=== PATIENT | female | born 1990 | race Caucasian/White ===

== ENCOUNTER 2016-11-25 06:51 | Day surgery (SDC) | payer BC, MEDICAID ==
[~2016-11-25 06:51] MED LIST: Lidocaine 1%/Sod Bicarbonate in NS 8.4% 1 ML Syringe PRN; Sodium Chloride 0.9% 10 ML Syringe FLUSH PRN
--- NOTE | 2016-11-25 06:57 | PCM.PREANE ---
Preanesthetic Assessment - Anesthesia/Transfusion/Family Hx Anesthesia History: Prior Anesthesia Without Reaction Family History of Anesthesia Reaction: No Transfusion History: No Prior Transfusion(s) Intubation History: Unknown - Review of Systems General: No Symptoms Pulmonary: No Symptoms Cardiovascular: Palpitations (with anxiety attacks) Gastrointestinal: No Symptoms (GERD) Neurological: No Symptoms (motion sickness noted on occasion.) Other: Reports: Sinus Problem (seasonal allergies), Anxiety - Physical Assessment NPO Status Date: 11/24/16 NPO Status Time: 21:00 Pulse: 68 O2 Sat by Pulse Oximetry: 98 Respiratory Rate: 16 Blood Pressure: 111/74 Temperature: 37.3 C Height: 1.55 m Weight: 52 kg ASA Class: 1 Mental Status: Alert & Oriented x3 Airway Class: Mallampati = 2 Dentition: Reports: Normal Dentition, Caries (upper/lower braces noted.) Thyro-Mental Finger Breadths: 3 Mouth Opening Finger Breadths: 3 ROM/Head Extension: Full Lungs: Clear to Auscultation, Normal Respiratory Effort Cardiovascular: Regular Rate, Regular Rhythm, No Murmurs - Lab Values: Laboratory Last Values WBC 8.65 K/mm3 (3.98-10.04) 11/23/16 09:30 RBC 4.73 M/mm3 (3.98-5.22) 11/23/16 09:30 Hgb 14.0 gm/L (11.2-15.7) 11/23/16 09:30 Hct 41.5 % (34.1-44.9) 11/23/16 09:30 MCV 87.7 fl (79.4-94.8) 11/23/16 09:30 MCH 29.6 pg (25.6-32.2) 11/23/16 09:30 MCHC 33.7 g/dl (32.2-35.5) 11/23/16 09:30 RDW Std Deviation 41.0 fL (36.4-46.3) 11/23/16 09:30 Plt Count 225 K/mm3 (182-369) 11/23/16 09:30 MPV 10.5 fl (9.4-12.3) 11/23/16 09:30 Neut % (Auto) 70.3 % (34.0-71.1) 11/23/16 09:30 Lymph % (Auto) 20.0 % (19.3-51.7) 11/23/16 09:30 [place] % (Auto) 7.3 % (4.7-12.5) 11/23/16 09:30 Eos % (Auto) 2.0 (0.7-5.8) 11/23/16 09:30 Baso % (Auto) 0.2 % (0.1-1.2) 11/23/16 09:30 Neut # (Auto) 6.08 K/mm3 (1.56-6.13) 11/23/16 09:30 Lymph # (Auto) 1.73 K/mm3 (1.18-3.74) 11/23/16 09:30 [place] # (Auto) 0.63 K/mm3 (0.24-0.36) H 11/23/16 09:30 Eos # (Auto) 0.17 K/mm3 (0.04-0.36) 11/23/16 09:30 Baso # (Auto) 0.02 K/mm3 (0.01-0.08) 11/23/16 09:30 HCG, Quant < 1.0 mIU/mL 11/23/16 09:30 Blood Type A POSITIVE 11/23/16 09:30 Gel Antibody Screen Negative 11/23/16 09:30 Above labs reviewed and noted. - Allergies Allergies/Adverse Reactions: Allergies Allergy/AdvReac Type Severity Reaction Status Date / Time Penicillins Allergy Hives Verified 11/24/16 14:27 - Anesthesia Plan Pre-Op Medication Ordered: None - Acknowledgements Anesthesia Type Planned: General Anesthesia Pt an Appropriate Candidate for the Planned Anesthesia: Yes Alternatives and Risks of Anesthesia Discussed w Pt/Guardian: Yes Pt/Guardian Understands and Agrees with Anesthesia Plan: Yes PreAnesthesia Questionnaire - Past Health History Medical/Surgical History: Denies Medical/Surgical History HEENT History: Reports: None Cardiovascular History: Reports: None Respiratory History: Reports: None Gastrointestinal History: Reports: None Genitourinary History: Reports: None 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 (See Below) Other OB/BYN History: irregular menses, pelvic pain Musculoskeletal History: Reports: None Neurological History: Reports: None Psychiatric History: Reports: Anxiety Endocrine/Metabolic History: Reports: None Hematologic History: Reports: None Immunologic History: Reports: None Oncologic (Cancer) History: Reports: None Dermatologic History: Reports: None - Past Surgical History Head Surgeries/Procedures: Reports: None HEENT Surgical History: Reports: None Cardiovascular Surgical History: Reports: None Respiratory Surgical History: Reports: None Endocrine Surgical History: Reports: None Neurological Surgical History: Reports: None Musculoskeletal Surgical History: Reports: None Oncologic Surgical History: Reports: None Dermatological Surgical History: Reports: None - SUBSTANCE USE Smoking Status *Q: Never Smoker Tobacco Use Within Last Twelve Months: Cigarettes Second Hand Smoke Exposure: No Days Per Week of Alcohol Use: 1 Number of Drinks Per Day: 2 Total Drinks Per Week: 2 Recreational Drug Use History: No - HOME MEDS Home Medications: Home Meds Fluticasone Propionate [Flonase Allergy Relief] 1 dose NASBOTH DAILY 11/24/16 [ History] Lactobacillus Acidophilus [Probiotic] 1 cap PO DAILY 11/24/16 [History] Multivitamin [Poly-Vitamin] 1 tab PO DAILY 11/24/16 [History] - CURRENT (IN HOUSE) MEDS Current Meds: Current Medications Lactated Ringer's (Ringers, Lactated) 1,000 mls @ 125 mls/hr IV ASDIRECTED SUSAN Stop: 11/25/16 23:00 Lidocaine/Sodium Bicarbonate (Buffered Lidocaine 1% In Ns 8.4%) 0.25 ml .XX ONETIME PRN PRN Reason: Prior to IV Start Stop: 11/25/16 18:00 Sodium Chloride (Saline Flush) 10 ml FLUSH ASDIRECTED PRN PRN Reason: Keep Vein Open Stop: 11/25/16 18:00
[2016-11-25] MEDS ORDERED: Methylene Blue 50 MG/10 ML Ampule ONE (07:04)
[2016-11-25] MEDS: Lactated Ringers 1,000 ML IV SCH ×2 (07:25→09:49)
[2016-11-25] MEDS ORDERED: Bupivacaine 0.5% 30 ML SDV ONE (07:26)
[2016-11-25] MEDS ORDERED: Midazolam 1 MG/ML 2 ML SDV ONE (07:36)
[2016-11-25] MEDS ORDERED: ceFAZolin 1 GM Vial ONE (07:36)
[2016-11-25] MEDS ORDERED: Ketorolac 30 MG/ML SDV ONE (07:36)
[2016-11-25] MEDS ORDERED: Ondansetron 4 MG/2 ML SDV ONE (07:36)
[2016-11-25] MEDS ORDERED: Rocuronium 50 MG/5 ML Vial ONE (07:36)
[2016-11-25] MEDS ORDERED: Lactated Ringers 1,000 ML ONE (07:36)
[2016-11-25] MEDS ORDERED: Propofol 200 MG/20 ML SDV ONE (07:36)
[2016-11-25] MEDS ORDERED: Dexamethasone 4 MG/ML 5 ML MDV ONE (07:36)
[2016-11-25] MEDS ORDERED: Lidocaine 1% 4 ML ONE (07:36)
[2016-11-25] MEDS ORDERED: fentaNYL 250 MCG/5 ML SDV ONE (07:37)
[2016-11-25] MEDS ORDERED: HYDROmorphone 1 MG/ML Syringe ONE (08:25)
[2016-11-25] MEDS ORDERED: Midazolam 1 MG/ML 2 ML SDV IVPUSH PRN (08:27)
[2016-11-25] MEDS ORDERED: diphenhydrAMINE 50 MG/ML SDV IVPUSH PRN (08:27)
[2016-11-25] MEDS ORDERED: Ondansetron 4 MG/2 ML SDV IVPUSH PRN (08:27)
[2016-11-25] MEDS ORDERED: ePHEDrine 50 MG/ML SDV IVPUSH PRN (08:27)
[2016-11-25] MEDS ORDERED: Meperidine PF 50 MG/ML Syringe IVPUSH PRN (08:27)
[2016-11-25] MEDS ORDERED: Phenylephrine 1 MG in Sodium Chloride 0.9% 10 ML IV SCH (08:30)
[2016-11-25] MEDS ORDERED: Glycopyrrolate 0.2 MG/ML SDV ONE ×3 (08:53→08:55)
[2016-11-25] MEDS ORDERED: HYDROmorphone 0.5 MG/0.5 ML Syringe IVPUSH PRN (09:30)
[2016-11-25] MEDS ORDERED: fentaNYL 100 MCG/2 ML SDV IVPUSH PRN (09:30)
--- NOTE | 2016-11-25 09:32 | PCM.OPNOTE ---
- General Post-Op/Procedure Note Date of Surgery/Procedure: 11/25/16 Operative Procedure(s): Laparoscopy with biopsy and lysis of adhesions 66918, dilatation and curettage and hysteroscopy 97812 Pre Op Diagnosis: Irregular menses, pelvic pain. 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 SCDs in place and functioning prior to surgery Ancef 2 g given intravenously prior surgery without untoward effect. Timeout performed confirming name date of and procedure as laparoscopy hysteroscopy and D&C. Examination under anesthesia revealed no adnexal masses normal size uterus uterine manipulator was placed after carefully dilating the uterus after sounding to 7.5 cm. A 2 ml injection of 0.5% Marcaine injected in the area of the planned incision at the umbilicus and just above the pubic line in the center. 5 mm incisions made in both areas and varies needle was introduced without difficulty pneumoperitoneum was obtained the 5 mm trocar was then introduced and prompt visualization of pelvic organs accomplished. Suprapubic placement of 5 mm trocar was then performed. Examination of the pelvic organs revealed adhesions of the anterior surface of the uterus to the round ligaments and adhesions in the area of the cecum and appendix on the right side anterolaterally (Dr. Billings general surgeon was called to view the adhesions and confirmed planned procedure lysis of adhesions without removal of the appendix) both ovaries appeared normal with the exception the right ovary having a small "fibroma" appearing excrescence which was subsequently biopsied and removed. The tubes appeared normal chromotubation was not performed. He cul-de-sac anteriorly and posteriorly showed no evidence of endometriosis. The gallbladder appeared normal the liver appeared normal there were no adhesions from the liver to the anterior abdominal wall. Lysis of adhesions was performed in the area of the appendix and distal cecum freeing up this area. The appendix was not removed. Biopsy of the right ovary with the excrescence was performed removing the area in entirety. It appeared to be a fibroma pathology report is pending. Adhesions of the anterior cul-de-sac peritoneum to the round ligament were lysed with blunt and sharp dissection. Sponge needle pack asthma sharp count correct 2 and the abdominal cavity was closed after reduction of the pneumoperitoneum using 3-0 Monocryl subcutaneous ticker suture and Dermabond applied to the 2 incisions. The hysteroscopy was then performed removing the uterine manipulator and utilizing scope which was introduced through the artery dilated cervical canal the end of Gerard cavity appeared normal left and right tubal ostia were normal. Curettage was performed, tissue sent to pathology for tissue evaluation. One set of pictures taken with 19 images image 001 shows the left fallopian tube and fundus of the uterus and the right fallopian tube and ovary image 002 shows the right ovary with a small excrescence as noted which was subsequently removed. The right tube and round ligament on the right. Image 003 shows the left ovary which appears normal. Image 004 shows a right ovary with the excrescence better seen. Image 005 shows the adhesions and the appendix and distal cecum. Image 006 shows the distal portion of the appendix. Image 007 shows the central portion of the appendix. Image 008 shows the gallbladder and liver edge and no adhesions from the liver to the anterior abdominal wall. Image 009 better view of the liver and anterior abdominal wall with adhesions. Image 010 so she appendix after lysis of the adhesionsthe appendix was not removed. Image 011 shows normal posterior cul-de-sac image 012 shows adhesions on the right side of the peritoneum to the area of the right round ligament image 013 shows adhesions of the left side to the left round ligament and anterior abdominal wall image 014 shows the area of the adhesio lysis after adhesions had been lysed and no bleeding. Image 015 shows the left side after using a lysis. Image 016 shows the right ovary after removal of the excrescence. Image 017 shows the patient's right tubal ostium at hysteroscopy image 018 shows the left tubal ostium at hysteroscopy image 019 shows the proximal portion of the cervical canal. Postoperative the patient's mother and fianc and all questions answered voiced satisfaction's Patient given prescription for Percocet dispense 15 5/325 take 1 by mouth every 6 hours when necessary pain.
--- NOTE | 2016-11-25 09:33 | PCM.POSTAN ---
POST ANESTHESIA ASSESSMENT - MENTAL STATUS Mental Status: Alert - VITAL SIGNS Pulse Rate: 106 SaO2: 100 Resp Rate: 16 Blood Pressure: 114/72 Temperature: 36.3 C - RESPIRATORY Respiratory Status: Respiratory Rate WNL, Airway Patent, O2 Saturation Stable, Supplemental Oxygen - CARDIOVASCULAR CV Status: Pulse Rate WNL, Blood Pressure Stable - GASTROINTESTINAL GI Status: No Symptoms - POST OP HYDRATION Hydration Status: Adequate & Stable
--- NOTE | 2016-11-25 10:03 | PCM48HPAN ---
Post Anesthesia Note - EVALUATION WITHIN 48HRS OF ANESTHETIC Vital Signs in Normal Range: Yes Patient Participated in Evaluation: Yes Respiratory Function Stable: Yes Airway Patent: Yes Cardiovascular Function Stable: Yes Hydration Status Stable: Yes Pain Control Satisfactory: Yes Nausea and Vomiting Control Satisfactory: Yes Mental Status Recovered: Yes
[2016-11-25] MEDS ORDERED: Acetaminophen/oxyCODONE 325-5 MG Tab PO ONE (10:45)
[2016-11-25 12:20] VITALS: BP 97/69
== END 2016-11-25 11:45 | disposition home or self-care (01) ==
LOC: JD.SDS 06:51
PROVIDERS: ATTEND Obstetrics & Gynecology
DX: N83.8 Other noninflammatory disorders of ovary, fallopian tube and broad ligament (principal); N85.8 Other specified noninflammatory disorders of uterus
CPT/HCPCS: 36415; 58558; 58662; 84702; 85025; 86850; 86900; 86901; A9270; J0690; J1100; J1170; J1885; J2250; J2405; J3010; J3490; J7120; 00840; J2704

== ENCOUNTER 2017-03-21 11:15 | Emergency (ER) | payer BC, MEDICAID ==
[2017-03-21 11:26] VITALS: BP 111/67
[2017-03-21] MEDS ORDERED: Famotidine 20 MG Tab PO ONE (11:46)
[2017-03-21] MEDS ORDERED: diphenhydrAMINE 50 MG Cap PO ONE (11:46)
[2017-03-21] MEDS ORDERED: predniSONE 20 MG Tab PO ONE (11:47)
--- NOTE | 2017-03-21 11:58 | EDM.PDOC ---
ED HPI GENERAL MEDICAL PROBLEM - General Chief Complaint: Skin Complaint Stated Complaint: HIVES Time Seen by Provider: 03/21/17 11:27 Source of Information: Reports: Patient History Limitations: Reports: No Limitations - History of Present Illness INITIAL COMMENTS - FREE TEXT/NARRATIVE: Patient a 27-year-old female who presents to the ED complaining of intermittent rash (hives) to her head, neck, back, chest, arms, and legs. Hives started approximately 3 days ago and have been waxing and waning. Patient states she's been taking Benadryl with relief of symptoms. Unclear cause of hives. She's never had hives as such. States she has sensitive skin and has been not using and scented lotion as of recent. Last dose of Benadryl was this morning approximately 3 hours prior to arrival. She denies any recent illness. She currently takes control and states she is not . Urticaria does worsen with itching. No open wounds or exposure suggesting scabies and or bed bugs. Patient denies new clothes, medications, lotions, shampoos, laundry detergents, fabric softeners, new foods, or any additional possible factors. 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 (see below) Other Treatments CHICLE GRINDER FEEDER: PO Benadryl - Related Data Allergies Allergy/AdvReac Type Severity Reaction Status Date / Time Penicillins Allergy Hives Verified 03/21/17 11:22 Home Meds: Home Meds Multivitamin [Poly-Vitamin] 1 tab PO DAILY 11/24/16 [History] Prednisone [IMW: predniSONE] 40 mg PO WITHBREAKFAST #10 tab 03/21/17 [Rx] l-Norgest/E.estradion-E.estrad [Seasonique 0.15-0.03-0.01] 1 each PO DAILY 03/21 [History] Past Medical History - Past Health History Medical/Surgical History: Denies Medical/Surgical History HEENT History: Reports: None Cardiovascular History: Reports: None Respiratory History: Reports: None Gastrointestinal History: Reports: None Genitourinary History: Reports: None 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 Laporscopy and hysteroscopy in Nov 2016 Musculoskeletal History: Reports: None Neurological History: Reports: None Psychiatric History: Reports: Anxiety Endocrine/Metabolic History: Reports: None Hematologic History: Reports: None Immunologic History: Reports: None Oncologic (Cancer) History: Reports: None Dermatologic History: Reports: None - Past Surgical History Head Surgeries/Procedures: Reports: None HEENT Surgical History: Reports: None Cardiovascular Surgical History: Reports: None Respiratory Surgical History: Reports: None Endocrine Surgical History: Reports: None Neurological Surgical History: Reports: None Musculoskeletal Surgical History: Reports: None Oncologic Surgical History: Reports: None Dermatological Surgical History: Reports: None Social & Family History - Tobacco Use Smoking Status *Q: Never Smoker Years of Tobacco use: 3 Packs/Tins Daily: 0.4 Used Tobacco, but Quit: No Second Hand Smoke Exposure: No - Caffeine Use Caffeine Use: Reports: Coffee - Alcohol Use Days Per Week of Alcohol Use: 1 Number of Drinks Per Day: 2 Total Drinks Per Week: 2 - Recreational Drug Use Recreational Drug Use: No ED ROS GENERAL - Review of Systems Review Of Systems: ROS reveals no pertinent complaints other than HPI. ED EXAM, SKIN/RASH Exam: See Below Exam Limited By: No Limitations General Appearance: Alert, WD/WN, No Apparent Distress Ears: Hearing Grossly Normal Nose: Normal Inspection Throat/Mouth: Normal Voice, No Airway Compromise Neck: Normal Inspection, Supple, Non-Tender Respiratory/Chest: No Respiratory Distress, Lungs Clear, Normal Breath Sounds, No Accessory Muscle Use Cardiovascular: Normal Peripheral Pulses, Regular Rate, Rhythm Peripheral Pulses: 2+: Radial (L) Back Exam: Full Range of Motion Extremities: Normal Range of Motion, Non-Tender, No Pedal Edema, Normal Capillary Refill Neurological: Alert, Oriented, CN II-XII Intact, Normal Cognition, No Motor/ Sensory Deficits Psychiatric: Normal Affect, Normal Mood Skin: Warm, Dry, Intact Location, Skin: Head (within the scalp sparing the face. ), Neck, Chest, Abdomen , Upper Extremity, Right, Upper Extremity, Left, Lower Extremity, Right, Lower Extremity, Left. No: Face, Back, Palms, Soles, Axillary, Groin Characteristics: Urticarial (with excoriations. ) Associated features: No: Warmth, Tenderness, Induration, Scaling, Lymphangitis, Inflammation, Crusting, Weeping, Rough Course - Vital Signs Last Recorded V/S: Last Vital Signs Temp 96.7 F 03/21/17 11:23 Pulse 67 03/21/17 11:23 Resp 14 03/21/17 11:23 BP 111/67 03/21/17 11:23 Pulse Ox 100 03/21/17 11:23 - Orders/Labs/Meds Meds: Medications Discontinued Medications Generic Name Dose Route Start Last Admin Trade Name Charlene PRN Reason Stop Dose Admin Diphenhydramine HCl 50 mg 03/21/17 11:46 03/21/17 12:22 Benadryl PO 03/21/17 11:47 50 mg ONETIME ONE Administration Famotidine 20 mg 03/21/17 11:46 03/21/17 12:22 Pepcid PO 03/21/17 11:47 20 mg ONETIME ONE Administration Prednisone 40 mg 03/22/17 11:47 Prednisone PO 03/22/17 11:48 ONETIME ONE Prednisone 40 mg 03/21/17 11:47 03/21/17 12:21 Prednisone PO 03/21/17 11:48 40 mg ONETIME ONE Administration - Re-Assessments/Exams Free Text/Narrative Re-Assessment/Exam: Ordered benadryl 50mg PO, pepcid 20 mg PO, and Prednisone 40mg pO. Will discharge patient home with instructions as instructed. Departure - Departure Time of Disposition: 11:51 Disposition: Home, Self-Care 01 Condition: Good Clinical Impression: Idiopathic urticaria - Discharge Information Prescriptions: Prednisone [IMW: predniSONE] 40 mg PO WITHBREAKFAST #10 tab Instructions: Pruritus, Hives, [id number] Referrals: Jenelle Elizabeth PA [Primary Care Provider] - Forms: ED Department Discharge Additional Instructions: As discussed cause of urticaria is unknown. Most commonly is related to food but may be associated with application of new lotions, soaps, or new clothing that has not been washed. Treatment at this point will include Pepcid 40 mg every day for duration of rash, prednisone 40 mg every a.m. for five days, and Benadryl 25 mg to 50 mg every 6 hours as needed if itching persists. Keep a log to what may be causing the rash. Follow-up with your primary care provider for further evaluation and treatment at completion treatment. Return to the ED if you develop any new or worsening symptoms. Do not itch the rash since this will only make it worse. In addition refrain from taking hot showers since this will also further release histamines causing the rash to worsen.
[2017-03-22] MEDS ORDERED: predniSONE 20 MG Tab PO ONE (11:47)
== END 2017-03-21 12:30 | disposition home or self-care (01) ==
LOC: JD.ED 11:15
DX: L50.1 Idiopathic urticaria (principal); Z88.0 Allergy status to penicillin; Z79.899 Other long term (current) drug therapy
CPT/HCPCS: 99283; A9270

== ENCOUNTER 2018-09-11 16:09 | Emergency (ER) | payer BC, MEDICAID ==
[2018-09-11 16:17] VITALS: BP 115/88
[2018-09-11] MEDS ORDERED: methylPREDNISolone Sodium Succinate 40 MG/1 ML SDV IM ONE (16:37)
[2018-09-11] MEDS ORDERED: Famotidine 20 MG Tab PO ONE (16:37)
--- NOTE | 2018-09-11 17:22 | EDM.PDOC ---
ED HPI GENERAL MEDICAL PROBLEM - General Chief Complaint: Allergic Reaction Stated Complaint: ALLERGIC RX Time Seen by Provider: 09/11/18 16:20 Source of Information: Reports: Patient History Limitations: Reports: No Limitations - History of Present Illness INITIAL COMMENTS - FREE TEXT/NARRATIVE: The patient presents with an allergic reaction to rambitan. This is a new fruit for her. After eating this she developed a rash on her face and hands and she had s cough and scratchy throat. She has reacted to other foods like bananas in the past. She has no shortness of breath. She has no nausea or vomiting. She says she did not do well when she was on prednisone a year ago for a reaction and she does not want to take any prednisone every again. Onset: Sudden Duration: Hour(s): Severity: Moderate Improves with: Reports: None Worsens with: Reports: None Associated Symptoms: Reports: No Other Symptoms - Related Data Allergies Allergy/AdvReac Type Severity Reaction Status Date / Time Penicillins Allergy Hives Verified 03/21/17 11:22 Home Meds: Home Meds l-Norgest/E.estradion-E.estrad [Seasonique 0.15-0.03-0.01] 1 each PO DAILY 03/21 [History] Past Medical History - Past Health History Medical/Surgical History: Denies Medical/Surgical History HEENT History: Reports: None Cardiovascular History: Reports: None Respiratory History: Reports: None Gastrointestinal History: Reports: None Genitourinary History: Reports: None OCC THER History: Reports: Other (See Below) Other OCC THER History: irregular menses, pelvic pain. Laporscopy and hysteroscopy in Nov 2016 Musculoskeletal History: Reports: None Neurological History: Reports: None Psychiatric History: Reports: Anxiety Endocrine/Metabolic History: Reports: None Hematologic History: Reports: None Immunologic History: Reports: None Oncologic (Cancer) History: Reports: None Dermatologic History: Reports: None - Past Surgical History Head Surgeries/Procedures: Reports: None HEENT Surgical History: Reports: None Cardiovascular Surgical History: Reports: None Respiratory Surgical History: Reports: None Endocrine Surgical History: Reports: None Neurological Surgical History: Reports: None Musculoskeletal Surgical History: Reports: None Oncologic Surgical History: Reports: None Dermatological Surgical History: Reports: None Social & Family History - Tobacco Use Smoking Status *Q: Never Smoker - Caffeine Use Caffeine Use: Reports: Coffee, Tea - Recreational Drug Use Recreational Drug Use: No ED ROS ALLERGIC REACTION - Review of Systems Review Of Systems: See Below Constitutional: Reports: No Symptoms HEENT: Reports: No Symptoms Respiratory: Reports: No Symptoms Cardiovascular: Reports: No Symptoms Endocrine: Reports: No Symptoms GI/Abdominal: Reports: No Symptoms : Reports: No Symptoms Musculoskeletal: Reports: No Symptoms Skin: Reports: Other (Rash on the face and the dorsum of the hands) ED EXAM GENERAL NO PERIP PULSE - Physical Exam Exam: See Below Exam Limited By: No Limitations General Appearance: Alert, No Apparent Distress Ears: Normal External Exam Nose: Normal Inspection Throat/Mouth: Normal Inspection Head: Atraumatic, Normocephalic Neck: Normal Inspection Respiratory/Chest: No Respiratory Distress, Lungs Clear, Normal Breath Sounds Cardiovascular: Regular Rate, Rhythm, No Edema, No Murmur GI/Abdominal: Soft, Non-Tender, No Organomegaly, No Mass Back Exam: Normal Inspection Extremities: Other (mild macular rash to the dorsum of both hands) Neurological: Alert, Oriented, No Motor/Sensory Deficits Skin Exam: Other (Macular rash to the face) Course - Vital Signs Last Recorded V/S: Last Vital Signs Temp 98.5 F 09/11/18 16:16 Pulse 92 09/11/18 16:16 Resp 20 09/11/18 16:16 BP 115/88 09/11/18 16:16 Pulse Ox 99 09/11/18 16:16 - Orders/Labs/Meds Meds: Medications Discontinued Medications Generic Name Dose Route Start Last Admin Trade Name Charlene PRN Reason Stop Dose Admin Famotidine 20 mg 09/11/18 16:37 09/11/18 16:57 Pepcid PO 09/11/18 16:38 20 mg ONETIME ONE Administration Methylprednisolone Sodium Succinate 40 mg 09/11/18 16:37 09/11/18 16:57 Solu-Medrol IM 09/11/18 16:38 40 mg ONETIME ONE Administration - Re-Assessments/Exams Free Text/Narrative Re-Assessment/Exam: 09/11/18 17:23 I ordered a shot of solu-medrol 40mg IM and pepcid 20mg by mouth. I feel I need to give her a lower dose of steroids. I will discharge her home. Departure - Departure Time of Disposition: 17:25 Disposition: Home, Self-Care 01 Condition: Good Clinical Impression: Allergic reaction Qualifiers: Encounter type: initial encounter Qualified Code(s): T78.40XA - Allergy, unspecified, initial encounter - Discharge Information *PRESCRIPTION DRUG MONITORING PROGRAM REVIEWED*: Not Applicable *COPY OF PRESCRIPTION DRUG MONITORING REPORT IN PATIENT [place]: Not Applicable Referrals: PCP,None [Primary Care Provider] - Vidhi Melvin PA-C [Physician Visiting Nurse] - 1 Week Additional Instructions: Take pepcid 20mg daily for 5 days. Take claritin 10mg daily for 1 week. You can also take benadryl 50mg every 6 hours as needed for any rash or swelling. Heat will make your rash worse. Be aware of that after taking a hot shower or bath. Please return if you are worse.
== END 2018-09-11 17:40 | disposition home or self-care (01) ==
LOC: JD.ED 16:09
DX: T78.1XXA Other adverse food reactions, not elsewhere classified, initial encounter (principal); R21 Rash and other nonspecific skin eruption; Z88.0 Allergy status to penicillin; Z79.899 Other long term (current) drug therapy
CPT/HCPCS: 96372; 99283; A9270; J2920

== ENCOUNTER 2020-08-11 02:47 | Emergency (ER) | payer BC ==
[2020-08-11 03:06] VITALS: BP 109/72; PULSE 89
[2020-08-11] MEDS ORDERED: Benzonatate 100 MG Cap PO ONE (03:58)
--- NOTE | 2020-08-11 04:17 | EDM.PDOC ---
ED HPI GENERAL MEDICAL PROBLEM - General Chief Complaint: Respiratory Problem Stated Complaint: SOB HAD COVID 2 WEEKS AGO Time Seen by Provider: 08/11/20 03:41 Source of Information: Reports: Patient History Limitations: Reports: No Limitations - History of Present Illness INITIAL COMMENTS - FREE TEXT/NARRATIVE: Patient arrived to the ED via private vehicle Onset of presenting symptoms was about 3 days ago Endorses paroxysmal coughing episodes, which have gotten worse throughout the day States she was able to settle symptoms after using albuterol, but this has become less effective tonight Cough is minimally productive Endorses pain in mid chest, which is unchanged with coughing or deep breaths Endorses dyspnea, feels like she cannot get a full breath She has not noted change in dyspnea with activity, or activity intolerance Complains that her throat feels constricted She tested positive for COVID-19 on 08/01 Symptoms began 07/25 with mild nasal congestion which improved with Mucinex This was associated with mild body aches, fatigue, diminished taste and smell, dry cough She had significant improvement in symptoms when she de-isolated 08/05/2020, with minimal cough, resolution of body aches and fatigue Chest Pain Score (Numeric/FACES): 5 - Related Data Allergies Allergy/AdvReac Type Severity Reaction Status Date / Time Penicillins Allergy Hives Verified 08/11/20 03:06 Home Meds: Home Meds l-Norgest/E.estradiol-E.estrad [Seasonique 0.15-0.03-0.01] 1 each PO DAILY 03/21/17 [History] Benzonatate 100 mg PO Q8H PRN #10 capsule 08/11/20 [Rx] Codeine Phosphate/Guaifenesin [Guaifen-Codeine 200-20 mg/10Ml] 10 ml PO BEDTIME PRN #60 ml 08/11/20 [Rx] Past Medical History - Past Health History Medical/Surgical History: Denies Medical/Surgical History HEENT History: Reports: None Cardiovascular History: Reports: None Respiratory History: Reports: Asthma Gastrointestinal History: Reports: None Genitourinary History: Reports: Renal Calculus [employer] History: Reports: Other (See Below) Other [employer] History: irregular menses, pelvic pain. Laporscopy and hysteroscopy in Nov 2016 Musculoskeletal History: Reports: None Neurological History: Reports: None, Migraines Psychiatric History: Reports: Anxiety Endocrine/Metabolic History: Reports: None Hematologic History: Reports: None Immunologic History: Reports: None Oncologic (Cancer) History: Reports: None Dermatologic History: Reports: None - Infectious Disease History Infectious Disease History: Reports: Novel Coronavirus - Past Surgical History Head Surgeries/Procedures: Reports: None HEENT Surgical History: Reports: None Cardiovascular Surgical History: Reports: None Female Surgical History: Reports: D&C Endocrine Surgical History: Reports: None Neurological Surgical History: Reports: None Musculoskeletal Surgical History: Reports: None Oncologic Surgical History: Reports: None Dermatological Surgical History: Reports: None Social & Family History - Tobacco Use Tobacco Use Status *Q: Never Tobacco User - Caffeine Use Caffeine Use: Reports: Coffee - Recreational Drug Use Recreational Drug Use: No ED ROS GENERAL - Review of Systems Review Of Systems: See Below Free Text/Narrative/Comment: Constitutional - no fever Eyes - no eye pain; no visual disturbance ENT - no rhinorrhea; no congestion; no epistaxis; no sore throat Cardiovascular - chest pain Respiratory - shortness of breath; cough Gastrointestinal - no abdominal pain; no nausea; no vomiting; no diarrhea Genitourinary - no dysuria Musculoskeletal - no neck pain; back pain; no extremity injury Neurological - no headache; no speech disturbance; no weakness ED EXAM, GENERAL - Physical Exam Exam: See Below Free Text/Narrative:: Constitutional - awake; alert; mild distress secondary to coughing and pain Head - no facial swelling or weakness Eyes - extra ocular motion intact; conjunctiva normal; pupils equal and reactive to light ENT - no nasal deformity; no epistaxis; mild hoarseness; mucus membranes moist; no drooling Neck - no swelling Respiratory - normal respiratory effort; no crackles or wheezing; no stridor Cardiovascular - regular rhythm; normal rate; S1; S2; grade 1/6 systolic murmur GI/Abdomen - normal bowel sounds; soft; no tenderness/rebound/guarding; no mass Musculoskeletal - grossly normal strength and motion; no swelling or deformity; no calf tenderness Skin - warm; dry Neurologic - normal speech; no weakness; gait intact Psychiatric - normal mood and affect; memory and attention normal #1 Interpretation EKG Date: 08/11/20 Time: 04:19 Rhythm: NSR [place]: Normal P-Wave: Present QRS: Normal ST-T: Normal Comparison: NA - No Prior EKG Course - Vital Signs Text/Narrative:: . Considered etiologies included: Cough, bronchitis, chest pain, dyspnea, pneumonia, viral syndrome, COVID-19, pulmonary embolism Symptoms and examination were discussed Empiric treatment was provided with benzonatate Investigations were initiated Ibuprofen was given for analgesia per request Results were discussed, and were unremarkable There were no findings for acute cardiopulmonary pathology An association between her current symptoms and recent COVID-19 was uncertain Symptomatic treatment for bronchitis was reviewed Empiric dose of dexamethasone was provided in consideration of her history, and throat/neck discomfort Patient was felt to be stable for outpatient follow-up Return precautions were provided Last Recorded V/S: Last Vital Signs Temp 36.2 C 08/11/20 02:59 Pulse 89 08/11/20 02:59 Resp 20 08/11/20 02:59 BP 109/72 08/11/20 02:59 Pulse Ox 99 08/11/20 02:59 - Orders/Labs/Meds Orders: Active Orders 24 hr Category Date Time Status Chest 2V [CR] Stat Exams 08/11/20 03:56 Taken Labs: Laboratory Tests 08/11/20 08/11/20 08/11/20 Range/Units 04:14 04:14 04:14 WBC 11.83 H (3.98-10.04) K/mm3 RBC 4.62 (3.98-5.22) M/mm3 Hgb 13.4 (11.2-15.7) gm/dl Hct 39.8 (34.1-44.9) % MCV 86.1 (79.4-94.8) fl MCH 29.0 (25.6-32.2) pg MCHC 33.7 (32.2-35.5) g/dl RDW Std Deviation 37.6 (36.4-46.3) fL Plt Count 286 (182-369) K/mm3 MPV 9.6 (9.4-12.3) fl Neut % (Auto) 65.1 (34.0-71.1) % Lymph % (Auto) 23.1 (19.3-51.7) % [place] % (Auto) 6.6 (4.7-12.5) % Eos % (Auto) 4.6 (0.7-5.8) Baso % (Auto) 0.3 (0.1-1.2) % Neut # (Auto) 7.72 H (1.56-6.13) K/mm3 Lymph # (Auto) 2.73 (1.18-3.74) K/mm3 [place] # (Auto) 0.78 H (0.24-0.36) K/mm3 Eos # (Auto) 0.54 H (0.04-0.36) K/mm3 Baso # (Auto) 0.03 (0.01-0.08) K/mm3 Manual Slide Review Normal smear D-Dimer, Quantitative 0.26 (0.19-0.50) mg/L Sodium 141 (136-145) mEq/L Potassium 3.7 (3.5-5.1) mEq/L Chloride 104 (98-107) mEq/L Carbon Dioxide 28 (21-32) mEq/L Anion Gap 12.7 (5-15) BUN 18 (7-18) mg/dL Creatinine 1.1 H (0.55-1.02) mg/dL Est Cr Clr Drug Dosing 56.94 mL/min Estimated GFR (MDRD) 59 (>60) mL/min BUN/Creatinine Ratio 16.4 (14-18) Glucose 90 (74-106) mg/dL Calcium 9.1 (8.5-10.1) mg/dL Total Bilirubin 0.7 (0.2-1.0) mg/dL AST 21 (15-37) U/L ALT 34 (14-59) U/L Alkaline Phosphatase 77 (46-116) U/L Troponin I < 0.017 (0.00-0.056) ng/mL Total Protein 7.6 (6.4-8.2) g/dl Albumin 4.1 (3.4-5.0) g/dl Globulin 3.5 gm/dL Albumin/Globulin Ratio 1.2 (1-2) Meds: Medications Discontinued Medications Generic Name Dose Route Start Last Admin Trade Name Freq PRN Reason Stop Dose Admin Benzonatate 200 mg 08/11/20 03:58 08/11/20 04:18 Benzonatate 100 Mg Cap PO 08/11/20 03:59 200 mg ONETIME ONE Administration Dexamethasone 6 mg 08/11/20 05:03 08/11/20 05:22 Dexamethasone 4 Mg Tab PO 08/11/20 05:04 6 mg ONETIME ONE Administration Ibuprofen 600 mg 08/11/20 04:20 08/11/20 04:23 Ibuprofen 600 Mg Tab PO 08/11/20 04:21 600 mg ONETIME ONE Administration - Radiology Interpretation Free Text/Narrative:: XR chest, PA and lateral, interpreted by writer editor: WEST Departure - Departure Time of Disposition: 05:04 Disposition: Home, Self-Care 01 Condition: Good Clinical Impression: Bronchitis - Discharge Information Prescriptions: Benzonatate 100 mg PO Q8H PRN #10 capsule PRN Reason: Cough Codeine Phosphate/Guaifenesin [Guaifen-Codeine 200-20 mg/10Ml] 10 ml PO BEDTIME PRN #60 ml PRN Reason: Cough Instructions: Acute Bronchitis, Adult Referrals: Rangel Cardenas MD [Primary Care Provider] - Forms: ED Department Discharge Additional Instructions: Return if condition worsens May resume general activity and regular diet as tolerated Continue usual medications May use ALBUTEROL inhaler 2 puffs every 4 hours as needed for cough or shortness of breath May use BENZONATATE as prescribed, as needed for cough May take GUAIFENESIN/CODEINE cough medication at bedtime, as prescribed Follow-up with primary care provider is recommended in 5 to 7 days Sepsis Event Note (ED) - Evaluation Sepsis Screening Result: No Definite Risk - Focused Exam Vital Signs: Vital Signs Temp Pulse Resp BP Pulse Ox 08/11/20 02:59 36.2 C 89 20 109/72 99 - My Orders Last 24 Hours: My Active Orders 08/11/20 03:56 Chest 2V [CR] Stat - Assessment/Plan Last 24 Hours: My Active Orders 08/11/20 03:56 Chest 2V [CR] Stat
[2020-08-11] MEDS ORDERED: Ibuprofen 600 MG Tab PO ONE (04:20)
[2020-08-11] MEDS ORDERED: Dexamethasone 4 MG Tab PO ONE (05:03)
--- NOTE | 2020-08-12 07:08 | CR ---
Chest: PA and lateral views of the chest are obtained. Comparison: No prior chest imaging is available. Heart size and mediastinum are normal. Lungs are clear with no acute parenchymal change. No acute osseous abnormality is appreciated. Impression: 1. Nothing acute is seen on 2 view chest x-ray. Diagnostic code #1
== END 2020-08-11 05:24 | disposition home or self-care (01) ==
LOC: JD.ED 02:47
DX: J40 Bronchitis, not specified as acute or chronic (principal); Z88.0 Allergy status to penicillin
CPT/HCPCS: 36415; 71046; 80053; 84484; 85025; 85379; 93005; 99284; A9270; J8540

== ENCOUNTER 2021-08-18 09:24 | Emergency (ER) | payer BC ==
[2021-08-18 11:54] VITALS: BP 132/88; PULSE 66
== END 2021-08-18 11:54 | disposition home or self-care (01) ==
LOC: JD.ED 09:24
DX: R00.2 Palpitations (principal); Z88.0 Allergy status to penicillin
CPT/HCPCS: 36415; 80053; 83735; 84443; 85025; 85610; 93005; 93225; 93226; 99285-25